=== PATIENT | male | born 1965 | race Two or more races ===

== ENCOUNTER 2017-11-05 13:38 | Emergency (ER) | payer OTHER, SELFPAY ==
[2017-11-05 13:41] VITALS: BP 137/101; PULSE 68; RESP 18; TEMP 36.6; O2SAT 98; BMI 28.8
--- NOTE | 2017-11-05 14:01 | EKG12_ITS ---
Test Reason : CP Blood Pressure : / mmHG Vent. Rate : 070 BPM Atrial Rate : 070 BPM P-R Int : 144 ms QRS Dur : 098 ms QT Int : 380 ms P-R-T Axes : 034 027 016 degrees QTc Int : 410 ms Normal sinus rhythm Nonspecific T wave abnormality Abnormal ECG Confirmed by ELMA PLEITEZ ([id number]), avid editor AMANDA FLORES ([id number]) on 11/07/2017 2:20:22 PM Referred By: TAYLOR Confirmed By:ELMA PLEITEZ
[2017-11-05] MEDS: Aspirin 81 MG TAB.CHEW 324 MG PO (14:08)
[2017-11-05 14:15] LABS: Absolute Lymphocyte Count 3.48 X10^3/ul (0.83-4.51); Absolute Neutrophil Count 5.5 X10^3/uL (2.0-7.7); Basophil# 0.03 X10^3/uL; Basophil% 0.3 % (0-1); Eosinophil# 0.21 X10^3/uL; Eosinophils% 2.1 % (0-5); Hematocrit 47.5 % (40-54); Hemoglobin 16.4 g/dl (13.0-16.5); Lymphocyte # 3.48 X10^3/ul (4.0); Lymphocyte % 34.5 % (19-41); Mean Corp Hgb Conc 34.5 g/gl (32-36); Mean Corpuscular Hgb 31.7 pg (27.0-32.0); Mean Corpuscular Volume 91.9 fL (80-94); Mean Platelet Vol. 10.3 fl (6.2-12.0); Monocyte# 0.88 X10^3/uL; Monocyte% 8.7 % (0-10); Neutrophil # 5.49 X10^3/uL (2.7-7.7); Neutrophil % 54.3 % (47-70); POSITIVE COUNT NO; POSITIVE DIFFERENTIAL NO; POSITIVE MORPHOLOGY NO; Platelet Count 277 K/mm3 (150-450); RBC Distribution Width CV 12.6 % (11.6-14.6); Red Blood Count 5.17 M/mm3 (4.6-6.2); White Blood Count 10.1 K/mm3 (4.4-11.0)
--- NOTE | 2017-11-05 14:20 | RAD_ITS ---
STUDY: X-RAY CHEST REASON FOR EXAM: Male, 51 years old. Chest pain. TECHNIQUE: PA and lateral views of the chest. COMPARISON: None. FINDINGS: EKG electrodes are seen. The lungs are clear and expanded. There is no demonstrated pleural abnormality. Normal size heart. Normal mediastinum and aniyah. Normal visualized pulmonary arteries. Normal visualized aortic arch and descending thoracic aorta. Normal visualized thoracic spine. Normal visualized ribs, clavicles, and shoulders. There is no demonstrated abnormality of the visualized soft tissue structures of the upper abdomen. RAD/Chest PA and Lateral IMPRESSION: Normal x-ray examination of the chest. Electronically Signed: Kt Funes MD at 15:03 EDT Tel [phone], Service support ,
[2017-11-05 14:21] LABS: D-Dimer Quantitative (DVT/PE) < 0.27 FEU/ug/m (0.27-0.49)
[2017-11-05 14:23] LABS: Anion Gap 8 (5-15); BUN 12 mg/dL (7-18); BUN/Creat Ratio 10.6 RATIO (10-20); Calcium,Total 9.3 mg/dL (8.5-10.1); Chloride 105 mmol/L (98-107); Creatinine, Serum 1.13 mg/dL (0.70-1.30); EST Glomerular Filtration Rate 73 mL/min (>60); Est Glom Filt Rate - Afr Amer 88 mL/min (>60); Estimated Creatinine Clearance 71.36 ml/min; Glucose 87 mg/dL (74-106); Potassium 3.9 mmol/L (3.5-5.1); Sodium Level 140 mmol/L (136-145)
[2017-11-05 15:22] VITALS: BP 135/99; PULSE 65; RESP 16; O2SAT 98
--- NOTE | 2017-11-05 15:24 | ED.VISSUMM ---
- ER Visit Summary Date of Service: 11/05/17 Chief Complaint: Chest pain History of Present Illness: The patient is a 51 M presenting for evaluation secondary chest pain. Patient states yesterday he noticed that he was getting a burning sharp chest discomfort every time that he ate something. Patient states that it was a come and go type of pain. States it was not associated with any sort of nausea diaphoresis shortness of breath or lightheadedness. Patient states that it seems to get worse any time he eats or drinks. He currently states that he is symptom-free. He does endorse PE risk factors and that he recently traveled to and from [place] by car. Denies any hemoptysis. Denies any dissection or aneurysm risk factors. Physical Examination: Vital signs are within normal limits, patient is afebrile. General: Patient is well-nourished well-developed and in no acute distress. Head: Normocephalic, atraumatic Eyes: Pupils equal round and reactive bilaterally, extra occular motion intact bialterally ENT: Moist mucous membranes Neck: Supple, no lymphadenopathy, no JVD, no meningismus CVS: Heart regular rate and rhythm, no murmurs, rubs or gallops, radial pulses 2+ bilaterally Resp: Respirations nondistressed, lung sounds clear bilaterally Abdomen: Soft, nontender, nondistended, no palpable masses, normal bowel sounds Back: Nontender Extremities: Nontender, atraumatic, active full range of motion, no peripheral edema Skin: warm, no rashes, no petechia Neuro: Alert and oriented x 4, CN 2-12 intact, no lateralizing neurological defecits Psyc: Normal affect Test Results: EKG shows a sinus rhythm at [address] segments and nonspecific diffuse T-wave flattening. Chemistry troponin and d-dimer negative. Two-view chest x-ray per radiology and my personal review are negative. Emergency Department Course and Treatment: Patient presented for evaluation due to chest pain. He was given aspirin and GI cocktail and had symptomatic improvement. Workup was negative as noted above. Patient's BRIDGER score is 0 heart score is 1. Patient's symptomatology seems more consistent with dyspepsia than it does with a cardiac etiology. Patient will be discharged with a course of omeprazole. Patient will follow up with his PCP. Disposition: Discharge Impression: 1. Dyspepsia This note was generated with [employer] software. It may contain incorrect words, spelling, and punctuation that were not noted in review of the chart prior to signing ED Disposition - Plan for ED Patient: Disposition: Home or Assisted Living Chief Complaint: Chest Pain Diagnosis: Dyspepsia Instructions: ED GERD Prescriptions: Omeprazole 40 mg PO DAILY #30 capsule.dr Referrals: Yani Bateman MD [Primary Care Provider] - 3-5 Days
--- NOTE | 2017-11-05 15:30 | ED.DCSUM_ITS ---
- ER Visit Summary Date of Service: 11/05/17 Chief Complaint: Chest pain History of Present Illness: The patient is a 51 M presenting for evaluation secondary chest pain. Patient states yesterday he noticed that he was getting a burning sharp chest discomfort every time that he ate something. Patient states that it was a come and go type of pain. States it was not associated with any sort of nausea diaphoresis shortness of breath or lightheadedness. Patient states that it seems to get worse any time he eats or drinks. He currently states that he is symptom-free. He does endorse PE risk factors and that he recently traveled to and from [place] by car. Denies any hemoptysis. Denies any dissection or aneurysm risk factors. Physical Examination: Vital signs are within normal limits, patient is afebrile. General: Patient is well-nourished well-developed and in no acute distress. Head: Normocephalic, atraumatic Eyes: Pupils equal round and reactive bilaterally, extra occular motion intact bialterally ENT: Moist mucous membranes Neck: Supple, no lymphadenopathy, no JVD, no meningismus CVS: Heart regular rate and rhythm, no murmurs, rubs or gallops, radial pulses 2 + bilaterally Resp: Respirations nondistressed, lung sounds clear bilaterally Abdomen: Soft, nontender, nondistended, no palpable masses, normal bowel sounds Back: Nontender Extremities: Nontender, atraumatic, active full range of motion, no peripheral edema Skin: warm, no rashes, no petechia Neuro: Alert and oriented x 4, CN 2-12 intact, no lateralizing neurological defecits Psyc: Normal affect Test Results: EKG shows a sinus rhythm at [address] segments and nonspecific diffuse T-wave flattening. Chemistry troponin and d-dimer negative. Two-view chest x-ray per radiology and my personal review are negative. Emergency Department Course and Treatment: Patient presented for evaluation due to chest pain. He was given aspirin and GI cocktail and had symptomatic improvement. Workup was negative as noted above. Patient's BRIDGER score is 0 heart score is 1. Patient's symptomatology seems more consistent with dyspepsia than it does with a cardiac etiology. Patient will be discharged with a course of omeprazole. Patient will follow up with his PCP. Disposition: Discharge Impression: 1. Dyspepsia This note was generated with [employer] software. It may contain incorrect words, spelling, and punctuation that were not noted in review of the chart prior to signing ED Disposition - Plan for ED Patient: Disposition: Home or Assisted Living Chief Complaint: Chest Pain Diagnosis: Dyspepsia Instructions: ED GERD Prescriptions: Omeprazole 40 mg PO DAILY #30 capsule.dr Referrals: Yani Bateman MD [Primary Care Provider] - 3-5 Days
== END 2017-11-05 15:42 | disposition home or self-care (01) ==
PROVIDERS: Emergency Provider Emergency Medicine; Family Provider Internal Medicine; PCP Internal Medicine
DX: R10.13 Epigastric pain (principal); R07.9 Chest pain, unspecified
CPT/HCPCS: 71046; 80048; 84484; 85025; 85379; 93005; 99285; A4216

== ENCOUNTER 2019-04-03 00:55 | Emergency (ER) | payer OTHER, SELFPAY ==
[2019-04-03 00:55] VITALS: BP 140/105; PULSE 76; RESP 20; TEMP 36.7; O2SAT 98; BMI 25.8
--- NOTE | 2019-04-03 01:06 | RAD_ITS ---
STUDY: X-RAY CHEST REASON FOR EXAM: Male, 53 years old. Chest pain TECHNIQUE: Frontal and lateral views of the chest. COMPARISON: None. FINDINGS: The lungs are clear and expanded. There is no demonstrated pleural abnormality. Normal size heart. Normal mediastinum and aniyah. Normal visualized pulmonary arteries. Normal visualized aortic arch and descending thoracic aorta. There are diffuse degenerative changes of the visualized thoracic spine. Normal visualized ribs, clavicles, and shoulders. There is no demonstrated abnormality of the visualized soft tissue structures of the upper abdomen. RAD/Chest PA and Lateral IMPRESSION: Degenerative changes, as described above. No demonstrated acute cardiopulmonary process. Electronically Signed: Iveth Mclain, at 2:08 EDT Tel , Service support ,
--- NOTE | 2019-04-03 01:06 | EKG12_ITS ---
Test Reason : CP Blood Pressure : / mmHG Vent. Rate : 069 BPM Atrial Rate : 069 BPM P-R Int : 160 ms QRS Dur : 094 ms QT Int : 366 ms P-R-T Axes : 044 023 026 degrees QTc Int : 392 ms Normal sinus rhythm Nonspecific T wave abnormality Abnormal ECG Confirmed by KAY AGUILAR, MARCUS ([id number]), features editor AMANDA FLORES ([id number]) on 04/06/2019 3:41:16 PM Referred By: KIRSTEN Confirmed By:TERRIE VILLANUEVA MD
--- NOTE | 2019-04-03 01:07 | ED.DCSUM_ITS ---
History of Present Illness Chief Complaint: Chest Pain Narrative: Patient is a 53-year-old male who presents with chest pain. Symptoms began about 10:30 PM while getting ready to go to bed. This was 2-1/2 hours ago. He does have a history of heartburn and takes omeprazole. He complains of burning epigastric pain with radiation up to the center of his chest. No shortness of breath. No nausea. No dizziness. Pain does not radiate into the arms or neck. He does have a history of prior similar symptoms. No vomiting or diarrhea. He has had some recent constipation. He is treated for hypertension and hyperlipidemia. He is not diabetic. No known history of coronary disease. No family history of coronary disease. He is not a smoker. Past Medical History - Allergies and Home Meds Allergies/Adverse Reactions: Allergies No Known Allergies Allergy (Verified 04/03/19 00:59) Primary Care Physician: Yani Bateman MD [Primary Care Provider] - Past Medical History: - - Hypertension, hyperlipidemia, GERD Smoking Status: Never smoker Review of Systems All systems negative except as indicated General: Denies: Fever Cardiovascular: Reports: Chest pain Respiratory: Denies: Dyspnea Gastrointestinal: Reports: Abdominal pain. Denies: Nausea, Vomiting, Diarrhea Physical Exam Vital Signs/Narrative: Vital Signs Temp Pulse Resp BP Pulse Ox 04/03/19 00:55 98.1 F 76 20 H 140/105 H 98 Inital Vital Signs reviewed: Yes General: Well nourished, Well developed Head: Normocephalic, Atraumatic Eyes: Perrl, EOMI ENT: Moist mucous membranes Neck: Supple Cardiovascular: Regular rate, Regular rhythm Respiratory: No distress, CTA bilaterally Abdomen: Soft, Nontender, Nondistended Skin: Normal color Neurological: Alert Psychological: Normal affect Diagnostic/Tx/Re-eval Impressions Chest X-Ray 04/03/19 01:06 IMPRESSION: Degenerative changes, as described above. No demonstrated acute cardiopulmonary process. Electronically Signed: Iveth Mclain, at 2:08 EDT Tel , Service support , 04/03/19 01:06 Chest PA and Lateral [RAD] Stat Laboratory Results 04/03/19 04/03/19 00:55 00:55 WBC 11.2 H RBC 4.79 Hgb 15.2 Hct 43.6 MCV 91.0 MCH 31.7 MCHC 34.9 RDW Std Deviation 39.4 RDW Coeff of Manuel 11.9 Plt Count 266 MPV 10.4 Immature Gran % (Auto) 0.400 Neut % (Auto) 50.9 Lymph % (Auto) 36.2 Fleming % (Auto) 9.4 Eos % (Auto) 2.5 Baso % (Auto) 0.6 Absolute Neuts (auto) 5.7 Absolute Lymphs (auto) 4.06 Nucleated RBC % 0 Sodium 140 Potassium 3.7 Chloride 107 Carbon Dioxide 28.0 Anion Gap 5 BUN 10 Creatinine 1.14 Estim Creat Clear Calc 74.17 Est GFR (MDRD) Af Amer 87 Est GFR (MDRD) Non-Af 72 BUN/Creatinine Ratio 8.8 L Glucose 104 Calcium 8.8 Total Bilirubin 0.30 Direct Bilirubin 0.11 AST 18 ALT 27 Alkaline Phosphatase 80 Troponin I < 0.015 Total Protein 7.6 Albumin 4.0 Globulin 3.6 Lipase 241 - Medical Decision Making Laboratory studies unremarkable and chest x-ray shows no acute process. Patient's presentation is much more suggestive of a GI pathology rather than cardiac. He was treated with a GI cocktail with significant improvement of symptoms. He was advised to follow-up as an outpatient. He is already on a PPI. He understands to return for new or worsening symptoms and was discharged. ED Disposition - Plan for ED Patient: Disposition: Home or Assisted Living Diagnosis: GERD (gastroesophageal reflux disease) Instructions: GERD (Adult) Referrals: Yani Bateman MD [Primary Care Provider] -
[2019-04-03 01:08] VITALS: O2SAT 97
[2019-04-03 01:12] LABS: Absolute Lymphocyte Count 4.06 X10^3/uL (0.83-4.51); Absolute Neutrophil Count 5.7 X10^3/uL (2.0-7.7); Basophil# 0.07 X10^3/uL; Basophil% 0.6 % (0-1); Eosinophil# 0.28 X10^3/uL; Eosinophils% 2.5 % (0-5); Hematocrit 43.6 % (40-54); Hemoglobin 15.2 g/dL (13.0-16.5); Lymphocyte # 4.06 X10^3/ul (4.0); Lymphocyte % 36.2 % (19-41); Mean Corp Hgb Conc 34.9 g/dL (32-36); Mean Corpuscular Hgb 31.7 pg (27.0-32.0); Mean Platelet Vol. 10.4 fl (6.2-12.0); Monocyte# 1.05 X10^3/uL; Monocyte% 9.4 % (0-10); NRBC Flagged by Analyzer 0 % (0-5); Neutrophil # 5.71 X10^3/uL (2.7-7.7); Neutrophil % 50.9 % (47-70); Platelet Count 266 K/mm3 (150-450); RBC Distribution Width CV 11.9 % (11.6-14.6); RBC Distribution Width SD 39.4 fl (35.1-43.9); Red Blood Count 4.79 M/mm3 (4.6-6.2); White Blood Count 11.2 K/mm3 (4.4-11.0)
[2019-04-03] MEDS: Mag Hydrox/Al Hydrox/Simeth 30 ML UDC PO (01:12)
[2019-04-03 01:27] LABS: AST(SGOT) 18 U/L (15-37); Alanine Aminotransfer ALT/SGPT 27 U/L (16-61); Alkaline Phosphatase 80 U/L (45-117); Anion Gap 5 (5-15); BUN 10 mg/dL (7-18); BUN/Creat Ratio 8.8 RATIO (10-20); Bilirubin, Direct 0.11 mg/dL (0.00-0.30); Calcium,Total 8.8 mg/dL (8.5-10.1); Chloride 107 mmol/L (98-107); Creatinine, Serum 1.14 mg/dL (0.70-1.30); EST Glomerular Filtration Rate 72 mL/min (>60); Est Glom Filt Rate - Afr Amer 87 mL/min (>60); Estimated Creatinine Clearance 74.17 ml/min; Globulin 3.6 g/dL (2.2-4.2); Glucose 104 mg/dL (74-106); Lipase 241 U/L (73-393); Potassium 3.7 mmol/L (3.5-5.1); Protein, Total 7.6 g/dL (6.4-8.2); Sodium Level 140 mmol/L (136-145)
[2019-04-03 02:05] VITALS: BP 117/91; PULSE 62; RESP 16; O2SAT 97
[2019-04-03 02:21] VITALS: BP 115/88; PULSE 62; RESP 17; O2SAT 97
== END 2019-04-03 02:22 | disposition home or self-care (01) ==
PROVIDERS: Emergency Provider Emergency Medicine; Family Provider Internal Medicine; PCP Internal Medicine
DX: K21.9 Gastro-esophageal reflux disease without esophagitis (principal); I10 Essential (primary) hypertension; E78.5 Hyperlipidemia, unspecified; Z79.899 Other long term (current) drug therapy
CPT/HCPCS: 71046; 80048; 80076; 83690; 84484; 85025; 93005; 99285; A4216

== ENCOUNTER 2020-03-22 01:56 | Emergency (ER) | payer BC, SELFPAY ==
[2019-04-22 09:18] VITALS: BMI 25.8
[2020-03-22 01:57] VITALS: BP 149/104; PULSE 78; RESP 18; TEMP 36.2; O2SAT 100; BMI 26.0
[2020-03-22 02:00] VITALS: BP 135/99
--- NOTE | 2020-03-22 02:03 | EKG12_ITS ---
Test Reason : BP Blood Pressure : / mmHG Vent. Rate : 067 BPM Atrial Rate : 067 BPM P-R Int : 150 ms QRS Dur : 096 ms QT Int : 374 ms P-R-T Axes : 044 031 016 degrees QTc Int : 395 ms Normal sinus rhythm Normal ECG Confirmed by ZACH AGUILAR, WILL ([id number]), editor & co founder SERAFIN JOHNSON ([id number]) on 03/24/2020 11:15:53 AM Referred By: CL Confirmed By:WILL SERRANO MD
--- NOTE | 2020-03-22 02:04 | ED.DCSUM_ITS ---
History of Present Illness Chief Complaint: Hypertension Informant: Patient, Family Narrative: 54-year-old male with past medical history of hypertension presents with concern for elevated blood pressure. States approximately 7 hours ago he began developing a headache. States he checked his blood pressure which he found to be elevated. States he spoke with his primary care provider who advised him to take half of his 5 mg amlodipine this evening. States this did help his headache as well as his blood pressure. States that it then went up again which concerned him and brought him to the emergency department. He denies any chest pain, shortness of breath, lightheadedness, dizziness. Patient is not a current smoker. Past Medical History - Allergies and Home Meds Allergies/Adverse Reactions: Allergies No Known Allergies Allergy (Verified 04/22/19 09:17) Primary Care Physician: Yani Bateman MD [Primary Care Provider] - Past Medical History: - - HTN Surgical History: no surgical history Lives: Spouse/ Significant Other Smoking Status: Never smoker Alcohol: None Drugs: None Review of Systems General: Denies: Chills, Fever, Sweats Eyes: Denies: Visual changes - bilaterally, Diplopia ENT: Denies: Rhinorrhea, Sore throat Cardiovascular: Denies: Chest pain, Palpitations Respiratory: Denies: Dyspnea, Cough, Dyspnea on exertion Gastrointestinal: Denies: Abdominal pain, Nausea, Vomiting, Diarrhea, Melena, Hematochezia Genitourinary: Denies: Dysuria, Hematuria, Frequency Musculoskeletal: Denies: Back pain, Extremity Pain Skin: Denies: Rash, Wounds Neurological: Reports: Headache. Denies: Weakness, Numbness Physical Exam Vital Signs/Narrative: Vital Signs Temp Pulse Resp BP Pulse Ox 03/22/20 02:00 135/99 H 03/22/20 01:57 97.2 F L 78 18 149/104 H 100 Inital Vital Signs reviewed: Yes General: Well nourished, Well developed, No Acute Distress Head: Normocephalic, Atraumatic Eyes: Perrl, EOMI ENT: Moist mucous membranes, No rhinorrhea Neck: Supple, Nontender Cardiovascular: Regular rate, Regular rhythm, No murmurs Respiratory: No distress, CTA bilaterally, Chest nontender Abdomen: Soft, Nontender, Nondistended, Normal bowel sounds Back: Nontender, Normal Inspection Extremities: Nontender, No edema Skin: Normal color, No rash Neurological: Alert, Oriented x3, Cranial nerves II-XII grossly intact, Normal Strength, Normal Sensation Psychological: Normal affect, Normal Mood Diagnostic/Tx/Re-eval - Rhythm Strip Rhythm Strip: Sinus Rhythm Rate: 67 Ectopy: None - EKG Initial EKG Interpretation: Sinus Rhythm - Sinus rhythm at 67 bpm. WI interval of 150 ms. QTC of 395 ms. No evidence of ST elevation or depression at this time. Unchanged from previous on 04/03/2019. - Medical Decision Making Patient appears well and nontoxic. Lab work within normal limits including kidney function as well as troponin. EKG nonischemic. Patient's pressure was spontaneously reduced to approximately 125/90. Headache is improved. No m edication will be given at this time. Advised to follow-up with primary care provider at their appointment tomorrow. Asked to return for any chest pain or shortness of breath. Patient agreeable and discharged home in stable condition. Impression: 1. Elevated blood pressure with the diagnosis of hypertension 2. Headache ED Disposition - Plan for ED Patient: Disposition: Home or Assisted Living Instructions: ED Hypertension Established Referrals: Yani Bateman MD [Primary Care Provider] -
[2020-03-22 02:15] LABS: Absolute Lymphocyte Count 3.13 X10^3/uL (0.83-4.51); Absolute Neutrophil Count 4.6 X10^3/uL (2.0-7.7); Basophil% 1.1 % (0-1); Eosinophil# 0.45 X10^3/uL; Eosinophils% 4.9 % (0-5); Hematocrit 44.1 % (40-54); Hemoglobin 15.2 g/dL (13.0-16.5); Lymphocyte # 3.13 X10^3/ul (4.0); Lymphocyte % 34.2 % (19-41); Mean Corp Hgb Conc 34.5 g/dL (32-36); Mean Corpuscular Hgb 31.1 pg (27.0-32.0); Mean Corpuscular Volume 90.2 fL (80-94); Mean Platelet Vol. 9.6 fl (6.2-12.0); Monocyte# 0.82 X10^3/uL; NRBC Flagged by Analyzer 0 % (0-5); Neutrophil # 4.62 X10^3/uL (2.7-7.7); Neutrophil % 50.5 % (47-70); Platelet Count 317 K/mm3 (150-450); RBC Distribution Width CV 11.8 % (11.6-14.6); RBC Distribution Width SD 38.6 fl (35.1-43.9); Red Blood Count 4.89 M/mm3 (4.6-6.2); White Blood Count 9.2 K/mm3 (4.4-11.0)
[2020-03-22 02:34] LABS: Anion Gap 4 (5-15); BUN 11 mg/dL (7-18); BUN/Creat Ratio 10.9 RATIO (10-20); Calcium,Total 8.9 mg/dL (8.5-10.1); Chloride 108 mmol/L (98-107); Creatinine, Serum 1.01 mg/dL (0.70-1.30); EST Glomerular Filtration Rate 82 mL/min (>60); Est Glom Filt Rate - Afr Amer 100 mL/min (>60); Estimated Creatinine Clearance 79.99 ml/min; Glucose 96 mg/dL (74-106); Potassium 3.6 mmol/L (3.5-5.1); Sodium Level 139 mmol/L (136-145)
[2020-03-22 03:08] VITALS: BP 119/97; PULSE 73; RESP 18; O2SAT 97
== END 2020-03-22 03:09 | disposition home or self-care (01) ==
PROVIDERS: Emergency Provider Emergency Medicine; PCP Internal Medicine
DX: R51 Headache (principal); I10 Essential (primary) hypertension; Z79.899 Other long term (current) drug therapy
CPT/HCPCS: 80048; 84484; 85025; 93005; 99283; A4216